=== PATIENT | female | born 1975 | race Caucasian/White ===

== ENCOUNTER 2018-08-18 18:08 | Emergency (ER) | payer SELFPAY ==
[~2018-08-18] VITALS: Ht 157.5 cm; Wt 72.0 kg
[2018-08-18] MEDS ORDERED: IBUPROFEN 800MG TABLET PO ONE (21:15)
[2018-08-18 22:10] VITALS: BP 164/81
== END 2018-08-19 00:06 | disposition home or self-care (01) ==
LOC: ER 18:08
DX: S13.4XXA Sprain of ligaments of cervical spine, initial encounter (principal); V43.62XA Car passenger injured in collision with other type car in traffic accident, initial encounter; Y93.89 Activity, other specified; Y92.410 Unspecified street and highway as the place of occurrence of the external cause
CPT/HCPCS: 71045; 72040; 81025; 99284; Z7610